=== PATIENT | female | born 1975 | race Caucasian/White ===

== ENCOUNTER → 2016-11-02 08:35 | Outpatient (CLI) | payer BC | END | disposition home or self-care (01) | LOC: D.US 08:35 | DX: R22.9 Localized swelling, mass and lump, unspecified (principal) ==

== ENCOUNTER 2017-02-03 13:51 | Inpatient (IN) | payer BC ==
[~2017-02-03] VITALS: Ht 172.7 cm; Wt 62.6 kg
[2017-02-04] MEDS ORDERED: ALBUTEROL2.5 MG/3 M INH (03:46)
[2017-02-04] MEDS ORDERED: LEVAQUIN750 MG PO (03:47)
[2017-02-04] MEDS ORDERED: HYDROCODONE-APA1 TAB PO (03:48)
[2017-02-04] MEDS ORDERED: [UNRECOGNIZED DRUG - OTHER] (03:48)
[2017-02-04] MEDS ORDERED: TOPAMAX100 MG PO (03:49)
[2017-02-04] MEDS ORDERED: ULTRAM50 MG PO (03:49)
[2017-02-04] MEDS ORDERED: PROAIR HFA8.5 GM INH (03:51)
[2017-02-04] MEDS ORDERED: BACLOFEN10 MG PO (03:52)
[2017-02-04 07:30] VITALS: BP 119/72
[2017-02-04 10:32] VITALS: Ht 172.7 cm; Wt 62.6 kg
[2017-02-04] MEDS ORDERED: STERAPRED DS 1210 MG PO (15:53)
[2017-02-04] MEDS ORDERED: AUGMENTIN 875-11 TAB PO (15:59)
[2017-02-04] MEDS ORDERED: PREDNISONE10 MG PO (15:59)
== END 2017-02-04 16:32 | disposition home or self-care (01) | DRG 190 ==
LOC: D.WS 13:51 → OBSVTIME 14:00 → D.WS 16:19
PROVIDERS: ADMIT Family Medicine
DX: J44.0 Chronic obstructive pulmonary disease with (acute) lower respiratory infection (principal); J18.9 Pneumonia, unspecified organism; J44.1 Chronic obstructive pulmonary disease with (acute) exacerbation; J20.9 Acute bronchitis, unspecified; Z72.0 Tobacco use

== ENCOUNTER 2017-11-15 08:00 | Outpatient (CLI) | payer BC ==
[2017-02-04 10:32] VITALS: BMI 20.9
[~2017-11-15 08:00] MED LIST: ALBUTEROL2.5 MG/3 M INH; AUGMENTIN 875-11 TAB PO; BACLOFEN10 MG PO; HYDROCODONE-APA1 TAB PO; LEVAQUIN750 MG PO; PREDNISONE10 MG PO; PROAIR HFA8.5 GM INH; STERAPRED DS 1210 MG PO; TOPAMAX100 MG PO; ULTRAM50 MG PO; [UNRECOGNIZED DRUG - OTHER]
== END 2017-11-15 12:00 | disposition home or self-care (01) ==
LOC: D.MAMMO 08:00
DX: Z12.31 Encounter for screening mammogram for malignant neoplasm of breast (principal)

== ENCOUNTER 2018-04-09 08:53 | Inpatient (IN) | payer BC ==
[~2018-04-09] VITALS: Ht 172.7 cm; Wt 62.7 kg
--- NOTE | ~2018-04-09 | MORECARE ---
CASE MANAGEMENT DISCHARGE SUMMARY PATIENT: ROMIE BUNN UNIT: [id number] ADM DATE: 04/09/18 AGE: 43 : [birth year] SEX: F ROOM/BED: D.2218 AUTHOR: UYEN ROMO PHYSICIAN: REFERRING PHYSICIAN: NILS MCKEON MD DATE OF SERVICE: 04/09/18 Discharge Plan Patient Name: ROMIE BUNN Facility: [facility]:[place] : 1975 Planned Disposition: Home Anticipated Discharge Date: Discharge Date: Expected LOS: Initial Reviewer: [email or web address] Initial Review Date: 04/09/2018 Generated: 04/09/18 1:46 pm DCPIA - Discharge Planning Initial Assessment Updated by [email or web address]: Benita Montemayor on 04/09/18 12:43 pm * Is the patient Alert and Oriented? Yes * PCP GODWIN * [facility] * Preadmission Environment Home with Family * ADLs Independent * Equipment Nebulizer Oxygen * List name and contact numbers for known caregivers / representatives who currently or will assist patient after discharge: LISA [phone] * Community resources currently utilized None * Additional services required to return to the preadmission environment? No * Can the patient safely return to the preadmission environment? Yes * Has this patient been hospitalized within the prior 30 days at any hospital? No Patient Name: ROMIE BUNN Page [id number] at 1246 All edits/amendments must be made on the electronic document DICTATION DATE: 04/09/18 1245 SMELTER OPERATOR: TOMI 04/09/18 1245 RPT#: [id number] DC DATE: STATUS: ADM IN [facility] [address] [place] [address] END OF REPORT
--- NOTE | ~2018-04-09 | OP ---
PATIENT NAME: ROMIE BUNN MEDICAL RECORD: [id number] :[birth year] LOCATION:D.[id number] ADMISSION DATE:04/10/18 SURGEON: ROBERT PARTIDA MD DATE OF OPERATION: 04/11/2018 SURGEON: Robert Partida MD ANESTHESIA: TIVA by Harjeet Norwood CRNA DIAGNOSES: Pelvic pain, gross hematuria, interstitial cystitis, and urinary retention. PROCEDURES: Examination under anesthesia, cystoscopy, and intravesical Rimso instillation. FINDINGS: No mesh graft erosion. Single ureteral orifices bilaterally. No bladder tumors. Diffuse bladder inflammation. BLOOD LOSS: None. 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 She came to the hospital with complaints of gross hematuria and pelvic pain. She had seen her primary care physician over a week ago and he had started her on oral Levaquin. Her symptoms did not disappear however. When she came to the hospital, apparently she had trouble urinating and a Rice catheter was placed for 500 mL. The urine culture has been obtained here and it is growing a small quantity, less than 10,000 colony-forming units per mL of a Gram-positive organism. She has been on wide-spectrum antibiotics in the hospital as well as Levaquin that she had for a week prior. Besides the pelvic pain, she has suprapubic pain with gross hematuria and dyspareunia. CT scan of abdomen and pelvis showed normal kidneys with renal cyst, no renal stones, and a distended bladder. When I examined her, she had quite significant pain in the urethral and trigonal regions of bladder as well as suprapubic tenderness. I can feel mesh graft. She comes today for cystoscopy and evaluation under anesthesia to exclude the possibility of vaginal mesh erosion causing her symptoms. Because she is already on IV antibiotics on the floor, she did not get any further antibiotics here in the OR. DESCRIPTION OF PROCEDURE: The patient was given IV sedation. She was then placed into dorsal lithotomy position. She was prepped and draped. We used a 17-Salvadorean cystoscope with a 30-degree lens for visualization. The findings are as outlined above. Looking carefully at the urethra, I saw no signs of vaginal mesh erosion into the urethra or bladder. I then performed vaginoscopy and again no sign of vaginal mesh extrusion into the vaginal space was seen. Nothing abnormal was palpated on the examination under anesthesia. At this point, the bladder was emptied through a red rubber catheter, which was inserted in. We then injected 15 mL of Rimso solution into the bladder through the catheter. The catheter was then removed, leaving the solution in the bladder. Because the solution needs to be held for a period of time, we did not put a Rice catheter back in. I suspect that her pelvic pain symptoms may be interstitial cystitis. I am not entirely certain that she actually had urinary retention as 500 mL is the upper limit of normal bladder capacity. I will observe her tonight to see if she is able to void on her own. TRANSINT:[id number] Voice Confirmation ID: [id number] DOCUMENT ID: [id number] OPERATIVE REPORT [id number] ROMIE BUNN, ROBERT Montgomery MD at 0841 CC: [id number] DICTATION DATE: 04/11/18 1646 PREVENTION COORDINATOR: 04/11/18 2202 ADM IN [facility] [address] [place] [address]
--- NOTE | ~2018-04-09 | MORECARE ---
CASE MANAGEMENT DISCHARGE SUMMARY PATIENT: ROMIE BUNN UNIT: [id number] ADM DATE: 04/09/18 AGE: 43 : [birth year] SEX: F ROOM/BED: D.2218 AUTHOR: UYEN ROMO PHYSICIAN: REFERRING PHYSICIAN: NILS MCKEON MD DATE OF SERVICE: 04/09/18 Discharge Plan Patient Name: ROMIE BUNN Facility: [facility]:[place] : 1975 Planned Disposition: Home Anticipated Discharge Date: Discharge Date: Expected LOS: Initial Reviewer: [email or web address] Initial Review Date: 04/09/2018 Generated: 04/09/18 1:54 pm DCP- Discharge Planning Updated by [email or web address]: Benita Montemayor on 04/09/18 11:[address] Patient Name: ROMIE BUNN Admission Status: ER Accout number: [id number] Admission Date: 04-09-2018 : 1975 Admission Diagnosis: Attending: NILS MCKEON Current LOS: 1 Anticipated DC Date: Planned Disposition: Home Primary Insurance: [employer] Discharge Planning Comments: CM SPOKE WITH PATIENT AND FAMILY. STATES PLANS TO DC TO HOME WHEN DISCHARGED. STATES HAS NO NEEDS AND IS INDEPENDANT WITH ADL'S. CM WILL FOLLOW AND ASSIST NEEDED WITH DC PLANNING/NEEDS. Watch And Clock Repair Clerk: Benita Montemayor DCPIA - Discharge Planning Initial Assessment Updated by [email or web address]: Benita Montemayor on 04/09/18 12:43 pm * Is the patient Alert and Oriented? Yes * PCP GODWIN * [facility] * Preadmission Environment Home with Family * ADLs Independent * Equipment Nebulizer Oxygen * List name and contact numbers for known caregivers / representatives who currently or will assist patient after discharge: LISA [phone] * Community resources currently utilized None * Additional services required to return to the preadmission environment? No * Can the patient safely return to the preadmission environment? Yes * Has this patient been hospitalized within the prior 30 days at any hospital? No Last DP export: 04/09/18 11:46 Patient Name: ROMIE BUNN Page 17995 at 1254 All edits/amendments must be made on the electronic document DICTATION DATE: 04/09/181252 FUR REMODELER: TOMI 04/09/181252 RPT#: [id number] DC DATE: STATUS: ADM IN [facility] [address] [place] [address] END OF REPORT
--- NOTE | ~2018-04-09 | MORECARE ---
CASE MANAGEMENT DISCHARGE SUMMARY PATIENT: ROMIE BUNN UNIT: [id number] ADM DATE: 04/10/18 AGE: 43 : [birth year] SEX: F ROOM/BED: D.2218 AUTHOR: CLARISSADOC PHYSICIAN: REFERRING PHYSICIAN: NILS MCKEON MD DATE OF SERVICE: 04/12/18 Discharge Plan Patient Name: ROMIE BUNN Facility: [facility]:[place] : 1975 Planned Disposition: Home Anticipated Discharge Date: Discharge Date: Expected LOS: Initial Reviewer: [email or web address] Initial Review Date: 04/09/2018 Generated: 04/12/18 3:09 pm Comments DCP- Discharge Planning Updated by [email or web address]: Catrachita Ray on 04/12/18 1:[address] Patient Name: ROMIE BUNN Encounter No: [id number] : 1975 Primary Insurance: [employer] PPO Anticipated DC Date: Planned Disposition: Home External Planned Provider: : DCP follow-up note: Patient and family in agreement with discharge plan. No changes to plan. Case management will follow and assist as needed. Catrachita Ray DCP- Discharge Planning Updated by [email or web address]: Benita Montemayor on 04/09/18 11:[address] Patient Name: ROMIE BUNN Admission Status: ER Accout number: [id number] Admission Date: 04-09-2018 : 1975 Admission Diagnosis: Attending: NILS MCKEON Current LOS: 1 Anticipated DC Date: Planned Disposition: Home [facility] Discharge Planning Comments: CM SPOKE WITH PATIENT AND FAMILY. STATES PLANS TO DC TO HOME WHEN DISCHARGED. STATES HAS NO NEEDS AND IS INDEPENDANT WITH ADL'S. CM WILL FOLLOW AND ASSIST NEEDED WITH DC PLANNING/NEEDS. Mine Environmental Engineer: Benita Montemayor DCPIA - Discharge Planning Initial Assessment Updated by [email or web address]: Benita Montemayor on 04/09/18 12:43 pm * Is the patient Alert and Oriented? Yes * PCP GODWIN * [facility] * Preadmission Environment Home with Family * ADLs Independent * Equipment Nebulizer Oxygen * List name and contact numbers for known caregivers / representatives who currently or will assist patient after discharge: LISA [phone] * Community resources currently utilized None * Additional services required to return to the preadmission environment? No * Can the patient safely return to the preadmission environment? Yes * Has this patient been hospitalized within the prior 30 days at any hospital? No Last DP export: 04/09/18 11:54 Patient Name: ROMIE BUNN Page [phone] at 1409 All edits/amendments must be made on the electronic document DICTATION DATE: 04/12/181408 USED CAR LOT ATTENDANT: TOMI 04/12/181408 RPT#: [id number] NE DATE: STATUS: ADM IN [facility] [address] [place] [address] END OF REPORT
--- NOTE | ~2018-04-09 | MORECARE ---
CASE MANAGEMENT DISCHARGE SUMMARY PATIENT: ROMIE BUNN UNIT: [id number] ADM DATE: 04/10/18 AGE: 43 : [birth year] SEX: F ROOM/BED: D.2218 AUTHOR: UYEN ROMO PHYSICIAN: REFERRING PHYSICIAN: NILS MCKEON MD DATE OF SERVICE: 04/14/18 Discharge Plan Patient Name: ROMIE BUNN Facility: [facility]:[place] : 1975 Planned Disposition: Home Anticipated Discharge Date: Discharge Date: 04/12/2018 Expected LOS: Initial Reviewer: [email or web address] Initial Review Date: 04/09/2018 Generated: 04/14/18 4:04 pm Comments DCP- Discharge Planning Updated by [email or web address]: Catrachita Ray on 04/12/18 1:[address] Patient Name: ROMIE BUNN Encounter No: [id number] : 1975 Primary Insurance: [employer] PPO Anticipated DC Date: Planned Disposition: Home External Planned Provider: : DCP follow-up note: Patient and family in agreement with discharge plan. No changes to plan. Case management will follow and assist as needed. Catrachita Ray DCP- Discharge Planning Updated by [email or web address]: Benita Montemayor on 04/09/18 11:[address] Patient Name: ROMIE BUNN Admission Status: ER Accout number: [id number] Admission Date: 04-09-2018 : 1975 Admission Diagnosis: Attending: NILS MCKEON Current LOS: 1 Anticipated DC Date: Planned Disposition: Home [facility] Discharge Planning Comments: CM SPOKE WITH PATIENT AND FAMILY. STATES PLANS TO DC TO HOME WHEN DISCHARGED. STATES HAS NO NEEDS AND IS INDEPENDANT WITH ADL'S. CM WILL FOLLOW AND ASSIST NEEDED WITH DC PLANNING/NEEDS. Liquefied Natural Gas Plant Operator: Benita Montemayor DCPIA - Discharge Planning Initial Assessment Updated by [email or web address]: Benita Montemayor on 04/09/18 12:43 pm * Is the patient Alert and Oriented? Yes * PCP GODWIN * [facility] * Preadmission Environment Home with Family * ADLs Independent * Equipment Nebulizer Oxygen * List name and contact numbers for known caregivers / representatives who currently or will assist patient after discharge: LISA, * Community resources currently utilized None * Additional services required to return to the preadmission environment? No * Can the patient safely return to the preadmission environment? Yes * Has this patient been hospitalized within the prior 30 days at any hospital? No Last DP export: 04/12/18 1:09 Patient Name: ROMIE BUNN Page 61696 at 1504 All edits/amendments must be made on the electronic document DICTATION DATE: 04/14/18 1503 DIGITAL MEDIA PRODUCER: TOMI 04/14/18 1503 RPT#: [id number] DC DATE:04/12/18 STATUS: DIS IN [facility] [address] [place] [address] END OF REPORT
[2018-04-09] MEDS ORDERED: BACLOFEN20 M1 PO (09:10)
[2018-04-09] MEDS ORDERED: ADVAIR HFA 230-12 GM INH (09:10)
[2018-04-09] MEDS ORDERED: SPIRIVA18 MCG INH (09:11)
[2018-04-09] MEDS ORDERED: VENTOLIN HFA18 GM INH (09:12)
[2018-04-09] MEDS ORDERED: SINGULAIR10 MG PO (09:12)
[2018-04-09] MEDS ORDERED: BUSPAR10 MG PO (09:13)
[2018-04-09] MEDS ORDERED: NAPROXEN SODIU220 M1 PO (09:13)
[2018-04-09 09:40] LABS: HCG URINE NEGATIVE (NEGATIVE)
[2018-04-09 09:44] LABS: APPEARANCE CLEAR (CLEAR); BILIRUBIN NEGATIVE (NEGATIVE); COLOR YELLOW (YELLOW); GLUCOSE NEGATIVE (NEGATIVE); KETONE NEGATIVE (NEGATIVE); NITRITE POSITIVE (NEGATIVE); PROTEIN NEGATIVE (NEGATIVE); UROBILINOGEN NORMAL (NORMAL)
[2018-04-09 09:47] LABS: BACTERIA FEW /hpf (NONE SEEN); EPITHELIAL CELLS NSEEN /hpf (0-5); RED CELLS - URINE NONE SEEN /hpf (0-5); WHITE CELLS - URINE 0-5 /hpf (0-5)
[2018-04-09 09:49] LABS: BASOPHILS 0.1 % (0-2); EOSINOPHILS 0.6 % (0-7); HEMATOCRIT 40.1 % (36.0-48.0); HEMOGLOBIN 13.4 g/dL (12-16); IMMATURE GRANULOCYTES 0.2 % (0-5); LYMPHOCYTES 23.7 % (15-50); MCH 32.3 pg (26.0-34.0); MCHC 33.4 g/dL (31.0-37.0); MCV 96.6 fL (80.0-100.0); MEAN PLATELET VOLUME 9.5 fL (7.4-10.4); NEUTROPHILS 65.4 % (40-80); RBC 4.15 10x6/uL (4.00-5.40); RDW 13.5 % (11.5-14.5); WBC 8.5 10x3/uL (4.8-10.8)
[2018-04-09 09:51] LABS: PLATELET COUNT 245 10x3/uL (130-400)
[2018-04-09 10:12] LABS: ALBUMIN 3.7 g/dL (3.4-5.0); ANION GAP 10.7 mmol/L (8-16); BILIRUBIN - TOTAL 0.63 mg/dL (0.2-1.3); CALCIUM 9.1 mg/dL (8.5-10.1); POTASSIUM - SERUM 3.7 mmol/L (3.5-5.1); PROTEIN - SERUM 6.7 g/dL (6.4-8.2)
[2018-04-09] MEDS ORDERED: AMBIEN CR 6.26.25 MG PO (12:52)
[2018-04-09] MEDS ORDERED: HYDROCHLOROTHIA25 MG PO (12:53)
[2018-04-09] MEDS ORDERED: MULTI-DAY VITAM1 TAB PO (12:54)
[2018-04-09] MEDS ORDERED: SENNA LAXATIVE8.6 MG PO (12:55)
[2018-04-09 15:05] VITALS: BP 120/80
[2018-04-09 16:08] VITALS: BP 121/77; BMI 21.0
[2018-04-09 20:00] VITALS: BP 110/70
[2018-04-10] VITALS (8 sets, daily range): BP systolic 101–115; BP diastolic 54–72; Ht 172.7 cm; Wt 62.7 kg
[2018-04-10 06:21] LABS: BASOPHILS 0.1 % (0-2); EOSINOPHILS 0.9 % (0-7); HEMATOCRIT 38.4 % (36.0-48.0); HEMOGLOBIN 12.4 g/dL (12-16); IMMATURE GRANULOCYTES 0.2 % (0-5); LYMPHOCYTES 26.4 % (15-50); MCH 31.7 pg (26.0-34.0); MCHC 32.3 g/dL (31.0-37.0); MCV 98.2 fL (80.0-100.0); MEAN PLATELET VOLUME 9.9 fL (7.4-10.4); MONOCYTES 9.2 % (2-11); NEUTROPHILS 63.2 % (40-80); PLATELET COUNT 239 10x3/uL (130-400); RBC 3.91 10x6/uL (4.00-5.40); RDW 13.7 % (11.5-14.5); WBC 8.9 10x3/uL (4.8-10.8)
[2018-04-10 06:38] LABS: ALBUMIN 3.1 g/dL (3.4-5.0); ALKALINE PHOSPHATASE 42 U/L (46-116); ALT (SGPT) 17 U/L (10-68); BILIRUBIN - TOTAL 0.51 mg/dL (0.2-1.3); CALC OSMOLALITY 277 mosm/kg (275-300); CALCIUM 8.5 mg/dL (8.5-10.1); CARBON DIOXIDE 24.6 mmol/L (21.0-32.0); CHLORIDE - SERUM 109 mmol/L (98-107); CREATININE - SERUM 0.8 mg/dL (0.6-1.3); GLUCOSE 95 mg/dL (74-106); POTASSIUM - SERUM 4.5 mmol/L (3.5-5.1); PROTEIN - SERUM 5.9 g/dL (6.4-8.2); SODIUM 140 mmol/L (136-145); UREA NITROGEN 9 mg/dL (7-18); eGFR NON AFRICAN AMERICAN 83 mL/min (90-120)
[2018-04-11 00:35] VITALS: BP 113/60
[2018-04-11 06:35] VITALS: BP 114/72
[2018-04-11 07:08] LABS: BASOPHILS 0.3 % (0-2); EOSINOPHILS 0.9 % (0-7); HEMATOCRIT 37.2 % (36.0-48.0); IMMATURE GRANULOCYTES 0.1 % (0-5); LYMPHOCYTES 25.9 % (15-50); MCH 31.7 pg (26.0-34.0); MCHC 32.3 g/dL (31.0-37.0); MCV 98.2 fL (80.0-100.0); MEAN PLATELET VOLUME 9.8 fL (7.4-10.4); MONOCYTES 7.4 % (2-11); NEUTROPHILS 65.4 % (40-80); PLATELET COUNT 239 10x3/uL (130-400); RBC 3.79 10x6/uL (4.00-5.40); RDW 13.4 % (11.5-14.5); WBC 7.7 10x3/uL (4.8-10.8)
[2018-04-11 07:25] LABS: ALBUMIN 3.2 g/dL (3.4-5.0); ANION GAP 12.4 mmol/L (8-16); BILIRUBIN - TOTAL 1.18 mg/dL (0.2-1.3); CALCIUM 8.9 mg/dL (8.5-10.1); CREATININE - SERUM 0.9 mg/dL (0.6-1.3); POTASSIUM - SERUM 4.4 mmol/L (3.5-5.1); PROTEIN - SERUM 5.8 g/dL (6.4-8.2)
[2018-04-11 08:14] VITALS: BP 96/54
[2018-04-11 12:50] VITALS: BP 104/61
[2018-04-11 17:15] VITALS: BP 112/79
[2018-04-11 20:00] VITALS: BP 111/51
[2018-04-12 04:00] VITALS: BP 120/60
[2018-04-12 04:12] LABS: BASOPHILS 0.5 % (0-2); HEMATOCRIT 35.3 % (36.0-48.0); HEMOGLOBIN 11.5 g/dL (12-16); IMMATURE GRANULOCYTES 0.2 % (0-5); LYMPHOCYTES 24.8 % (15-50); MCH 31.9 pg (26.0-34.0); MCHC 32.6 g/dL (31.0-37.0); MCV 97.8 fL (80.0-100.0); MEAN PLATELET VOLUME 9.7 fL (7.4-10.4); MONOCYTES 8.4 % (2-11); NEUTROPHILS 65.1 % (40-80); PLATELET COUNT 253 10x3/uL (130-400); RBC 3.61 10x6/uL (4.00-5.40); RDW 13.1 % (11.5-14.5); WBC 6.3 10x3/uL (4.8-10.8)
[2018-04-12 04:34] LABS: ALKALINE PHOSPHATASE 37 U/L (46-116); ALT (SGPT) 23 U/L (10-68); BILIRUBIN - TOTAL 1.34 mg/dL (0.2-1.3); CALC OSMOLALITY 277 mosm/kg (275-300); CALCIUM 8.6 mg/dL (8.5-10.1); CHLORIDE - SERUM 108 mmol/L (98-107); CREATININE - SERUM 0.8 mg/dL (0.6-1.3); GLUCOSE 90 mg/dL (74-106); PROTEIN - SERUM 5.8 g/dL (6.4-8.2); SODIUM 139 mmol/L (136-145); UREA NITROGEN 13 mg/dL (7-18); eGFR NON AFRICAN AMERICAN 83 mL/min (90-120)
[2018-04-12 08:01] VITALS: BP 99/58
[2018-04-12] MEDS ORDERED: FLORAJEN3 CAPS460 MG PO (12:02)
[2018-04-12] MEDS ORDERED: PHENAZOPYRIDIN100 MG PO (12:02)
[2018-04-12] MEDS ORDERED: BACTRIM DS1 TAB PO (12:04)
== END 2018-04-12 15:37 | disposition home or self-care (01) | DRG 690 ==
LOC: D.ER 08:53 → D.MS 11:53 → D.EDHOLD 11:53 → OBSVTIME 11:53 → D.MS 12:16
PROVIDERS: Family Medicine; Urology
PROC: 3E0K8GC Introduction of Other Therapeutic Substance into Genitourinary Tract, Via Natural or Artificial Opening Endoscopic (ICD-10-PCS; principal; 2018-04-11 12:45)
DX: N30.11 Interstitial cystitis (chronic) with hematuria (principal); J43.9 Emphysema, unspecified; K59.03 Drug induced constipation; T44.3X5A Adverse effect of other parasympatholytics [anticholinergics and antimuscarinics] and spasmolytics, initial encounter; R31.0 Gross hematuria; G47.00 Insomnia, unspecified; G89.4 Chronic pain syndrome

== ENCOUNTER → 2018-04-14 08:54 | Outpatient (CLI) | payer BC ==
[2018-04-10 16:33] VITALS: BMI 21.0
[~2018-04-14 08:54] MED LIST changes: +ADVAIR HFA 230-12 GM INH; +AMBIEN CR 6.26.25 MG PO; +BACLOFEN20 M1 PO; +BACTRIM DS1 TAB PO; +BUSPAR10 MG PO; +FLORAJEN3 CAPS460 MG PO; +HYDROCHLOROTHIA25 MG PO; +MULTI-DAY VITAM1 TAB PO; +NAPROXEN SODIU220 M1 PO; +PHENAZOPYRIDIN100 MG PO; +SENNA LAXATIVE8.6 MG PO; +SINGULAIR10 MG PO; +SPIRIVA18 MCG INH; +VENTOLIN HFA18 GM INH
== END | disposition home or self-care (01) ==
LOC: D.US 08:54
DX: R10.2 Pelvic and perineal pain (principal)

== ENCOUNTER → 2018-04-18 14:56 | Outpatient (CLI) | payer BC ==
[2018-04-10 16:33] VITALS: BMI 21.0
== END | disposition home or self-care (01) ==
LOC: D.LABREF 14:56
DX: N39.0 Urinary tract infection, site not specified (principal)

== ENCOUNTER 2018-04-27 13:47 | Emergency (ER) | payer BC ==
[~2018-04-27] VITALS: Ht 172.7 cm; Wt 62.3 kg
[2018-04-27 13:49] VITALS: Ht 172.7 cm; Wt 62.3 kg
[2018-04-27 14:30] LABS: BASOPHILS 0.3 % (0-2); EOSINOPHILS 0.4 % (0-7); HEMATOCRIT 39.8 % (36.0-48.0); HEMOGLOBIN 13.2 g/dL (12-16); IMMATURE GRANULOCYTES 0.1 % (0-5); LYMPHOCYTES 18.1 % (15-50); MCH 32.4 pg (26.0-34.0); MCHC 33.2 g/dL (31.0-37.0); MCV 97.5 fL (80.0-100.0); MEAN PLATELET VOLUME 9.3 fL (7.4-10.4); MONOCYTES 7.6 % (2-11); NEUTROPHILS 73.5 % (40-80); RBC 4.08 10x6/uL (4.00-5.40); RDW 12.8 % (11.5-14.5); WBC 9.6 10x3/uL (4.8-10.8)
[2018-04-27 14:34] LABS: PLATELET COUNT 314 10x3/uL (130-400)
[2018-04-27 14:48] LABS: APPEARANCE CLEAR (CLEAR); BILIRUBIN NEGATIVE (NEGATIVE); COLOR DK YELLOW (YELLOW); GLUCOSE NEGATIVE (NEGATIVE); KETONE NEGATIVE (NEGATIVE); NITRITE NEGATIVE (NEGATIVE); PROTEIN NEGATIVE (NEGATIVE); SPECIFIC GRAVITY 1.005 (1.005-1.020); UROBILINOGEN NORMAL (NORMAL)
[2018-04-27 14:49] LABS: BACTERIA FEW /hpf (NONE SEEN); EPITHELIAL CELLS 0-5 /hpf (0-5); RED CELLS - URINE 0-5 /hpf (0-5); WHITE CELLS - URINE 0-5 /hpf (0-5)
[2018-04-27 14:50] LABS: YEAST <1+ /hpf (NONE SEEN)
[2018-04-27 14:51] LABS: ALBUMIN 3.7 g/dL (3.4-5.0); ANION GAP 11.4 mmol/L (8-16); BILIRUBIN - TOTAL 1.07 mg/dL (0.2-1.3); CALCIUM 8.9 mg/dL (8.5-10.1); CARBON DIOXIDE 26.7 mmol/L (21.0-32.0); CREATININE - SERUM 0.9 mg/dL (0.6-1.3); POTASSIUM - SERUM 4.1 mmol/L (3.5-5.1); PROTEIN - SERUM 7.1 g/dL (6.4-8.2)
[2018-04-27] MEDS ORDERED: EC-NAPROSYN500 MG PO (17:00)
[2018-04-27] MEDS ORDERED: MACROBID100 MG PO (17:02)
[2018-04-27 17:30] VITALS: BP 102/70
== END 2018-04-27 17:30 | disposition home or self-care (01) ==
LOC: D.ER 13:47
PROVIDERS: Family Medicine
DX: N83.202 Unspecified ovarian cyst, left side (principal); N39.0 Urinary tract infection, site not specified; B37.3 Candidiasis of vulva and vagina

== ENCOUNTER 2018-05-03 08:55 | Day surgery (SDC) | payer BC ==
[2018-05-02 10:06] LABS: BASOPHILS 0.3 % (0-2); EOSINOPHILS 0.5 % (0-7); HEMATOCRIT 36.8 % (36.0-48.0); IMMATURE GRANULOCYTES 0.1 % (0-5); LYMPHOCYTES 19.6 % (15-50); MCH 32.1 pg (26.0-34.0); MCHC 32.6 g/dL (31.0-37.0); MCV 98.4 fL (80.0-100.0); MEAN PLATELET VOLUME 9.6 fL (7.4-10.4); MONOCYTES 8.6 % (2-11); NEUTROPHILS 70.9 % (40-80); PLATELET COUNT 277 10x3/uL (130-400); RBC 3.74 10x6/uL (4.00-5.40); RDW 13.3 % (11.5-14.5); WBC 7.6 10x3/uL (4.8-10.8)
[2018-05-02 10:19] LABS: ANION GAP 11.5 mmol/L (8-16); CARBON DIOXIDE 26.6 mmol/L (21.0-32.0); POTASSIUM - SERUM 4.1 mmol/L (3.5-5.1)
[~2018-05-03] VITALS: Ht 171.4 cm; Wt 60.8 kg
[~2018-05-03 08:55] MED LIST changes: +ALDACTONE50 MG PO; +DIFLUCAN150 MG PO; +EC-NAPROSYN500 MG PO; +IBUPROFEN800 MG PO; +MACROBID100 MG PO; +MIRALAX17 GM PO; -TOPAMAX100 MG PO; +TOPAMAX50 MG PO; +ZOFRAN4 MG PO
[2018-05-03 10:11] VITALS: BP 105/66; Ht 171.4 cm; Wt 60.8 kg
== END 2018-05-03 17:30 | disposition home or self-care (01) ==
LOC: D.OPS 08:55
PROVIDERS: Obstetrics & Gynecology
DX: N80.3 Endometriosis of pelvic peritoneum (principal); K66.8 Other specified disorders of peritoneum; Z01.812 Encounter for preprocedural laboratory examination

== ENCOUNTER → 2018-06-01 17:34 | Outpatient (CLI) | payer BC ==
[2018-05-03 10:11] VITALS: BMI 20.7
== END | disposition home or self-care (01) ==
LOC: D.LABREF 17:34
DX: R82.5 Elevated urine levels of drugs, medicaments and biological substances (principal)

== ENCOUNTER → 2018-06-09 20:13 | Outpatient (CLI) | payer BC ==
[2018-05-03 10:11] VITALS: BMI 20.7
== END | disposition home or self-care (01) ==
LOC: D.LABREF 20:13
DX: D72.829 Elevated white blood cell count, unspecified (principal)

== ENCOUNTER → 2018-12-21 17:21 | Outpatient (CLI) | payer BC ==
[2018-05-03 10:11] VITALS: BMI 20.7
[2018-12-21 18:17] LABS: T4 THYROXIN - FREE 1.07 ng/dL (0.76-1.46); T4 THYROXINE 9.7 ug/dL (4.7-13.3); THYROID STIMULATING HORMONE 0.79 uIU/mL (0.36-3.74)
== END | disposition home or self-care (01) ==
LOC: D.LABREF 17:21
PROVIDERS: ATTEND Internal Medicine Interventional Cardiology
DX: R00.0 Tachycardia, unspecified (principal)

== ENCOUNTER → 2019-08-17 09:27 | Outpatient (CLI) | payer BC ==
[2018-05-03 10:11] VITALS: BMI 20.7
== END | disposition home or self-care (01) ==
LOC: D.MRI 09:27
PROVIDERS: ATTEND Family Medicine
DX: M62.81 Muscle weakness (generalized) (principal)

== ENCOUNTER → 2020-02-28 14:14 | Outpatient (CLI) | payer BC ==
[2018-05-03 10:11] VITALS: BMI 20.7
--- NOTE | ~2020-02-28 | EC ---
PATIENT:ROMIE BUNN DATE OF SERVICE: 02/28/20 SEX: F MEDICAL RECORD: [id number] DATE OF : [birth year] LOCATION:[facility] AGE OF PATIENT: 45 ADMISSION DATE: 02/28/20 REFERRING PHYSICIAN: INTERPRETING PHYSICIAN: IMANI LI MD ECHOCARDIOGRAM REPORT ECHO CHARGES 4 ECHO COMPLETE Date: 02/28/20 CLINICAL DIAGNOSIS: HEART MURMUR ECHOCARDIOGRAPHIC MEASUREMENTS (adult normal given) AC root (d.<3.7cm) 2.9 cm LV Septum d (<1.2 cm> 0.9 cm Valve Excursion 1.2 cm LV Septum (systole) 1.2 cm Left Atria (s.<4.0cm> 3.1 cm LVPW d(<1.2cm) 1.1 cm RV (d.<2.3cm) 2.9 cm LVPW (sytole) 1.3 cm LV diastole(<5.6CM) 4.1 cm MV E-F(>70mm/sec) cm LV systole 2.8 cm LVOT Diameter 1.9 cm MV exc.(>10mm) 1.6 cm Est.ejection fraction (50-75%) % DOPPLER: LVIT cm/sec A 76.0 cm/sec E 69.0 cm/sec LA cm/sec RVSP 25 mmHg LVOT cm/sec AOP1/2T m/s Asc. Ao 98 cm/sec RVOT 46 cm/sec RA cm/sec PA 77 cm/sec AV Gradient Peak 3.86 mmHg AV Mean 2.11 mmHg AV Area 2.3 cm MV Gradient Peak 2.66 mmHg MV Mean 1.05 mmHg MV Area cm COMMENTS: Mechanical Design Engineer: 2 JASON PINA Accounting Administrative Assistant: 3 Dr. Dinh TAPE# PACS Pericardial Effusion N DATE OF SERVICE: Adequate 2D, color flow imaging, spectral Doppler, and M-Mode. No LVH. LV internal dimensions are normal. Wall motion normal. EF greater than or equal to 55%. Aortic valve is tricuspid. No evidence of stenosis by Doppler interrogation. Left atrium is normal at 3.1 cm. Mitral valve shows no prolapse. Trace MR. Right-sided chambers are grossly normal. Trace TR. TRANSINT:[id number] Voice Confirmation ID: [id number] DOCUMENT ID: [id number] ECHOCARDIOGRAM REPORT [id number] ROMIE BUNN GREGORY A MD CC: [id number] DICTATION DATE: 03/03/20 0809 BIOMEDICAL EQUIPMENT TECHNICIAN: 03/03/20 1144 DEP CLI 02/28/20 [place] [id number] [place] [address]
--- NOTE | 2020-03-03 09:31 | ST ---
PATIENT:ROMIE BUNN MEDICAL RECORD: [id number] SEX: F LOCATION:[facility] ORDER #: ADMISSION DATE: 02/28/20 AGE OF PATIENT: 45 REFERRING PHYSICIAN: INTERPRETING PHYSICIAN: IMANI LI MD DATE OF SERVICE: 02/28/2020 PROCEDURE: Treadmill stress test. Baseline ECG is normal. Exercised for 9 minutes 6 seconds on Frank protocol. Maximum heart rate 150 beats per minute, 85% of max predicted. No ECG changes for ischemia. No symptoms of ischemia. Normal blood pressure response to exercise. No arrhythmias noted. Good exercise tolerance for age. TRANSINT:[id number] Voice Confirmation ID: [id number] DOCUMENT ID: [id number] IMANI LI MD at 0931 CC: [id number] DICTATION DATE: 02/29/20 1045 PASSENGER SERVICE REPRESENTATIVE: 03/01/20 0230 DEP CLI 02/28/[address] [facility] [address] [place] [address]
== END | disposition home or self-care (01) ==
LOC: D.HCCECHO 14:14
PROVIDERS: ATTEND Internal Medicine Interventional Cardiology
DX: R06.09 Other forms of dyspnea (principal); R01.1 Cardiac murmur, unspecified